=== PATIENT | female | born 1975 | race Caucasian/White ===

== ENCOUNTER 2020-03-06 21:47 | Emergency (ER) | payer OTHER ==
[2020-03-06 21:56] VITALS: TEMP 99.2; BMI 43.4
[2020-03-06] MEDS ORDERED: ALPRAZolam 0.25 MG TABLET ONE (21:59)
[2020-03-06] MEDS ORDERED: ALPRAZolam 1 MG TABLET PO PRN (22:06)
[2020-03-06 22:58] VITALS: BP 188/107; PULSE 95
== END 2020-03-06 23:07 | disposition home or self-care (01) ==
LOC: FER 21:47
DX: I10 Essential (primary) hypertension (principal)
CPT/HCPCS: 99283-25

== ENCOUNTER 2023-02-27 09:53 | Emergency (ER) | payer OTHER ==
[2023-02-27 10:07] VITALS: BP 180/102; PULSE 99; RESP 16; TEMP 97.2; BMI 38.5
== END 2023-02-27 10:32 | disposition home or self-care (01) ==
LOC: FER 09:53
DX: H53.8 Other visual disturbances (principal)
CPT/HCPCS: 99283-25